=== PATIENT | male | born 1960 | race African-American/Black ===

== ENCOUNTER 2017-06-29 08:05 | Day surgery (SDC) | payer OTHER ==
[2017-06-29] VITALS (10 sets, daily range): BP systolic 123–141; BP diastolic 74–93
[~2017-06-29] VITALS: Ht 180.3 cm; Wt 93.9 kg
--- NOTE | 2017-06-29 06:57 | Pre-Procedure Note/Attestation ---
Pre-Procedure Note/Attestation Complete Prior to Procedure Planned Procedure: right Procedure Narrative: rt shoulder scope, sad, mini estiven, biceps tenodesis, resection of loose fragments from subscap recess, possible rtc repair vs debride Indications for Procedure Pre-Operative Diagnosis: rt shoulder rtc tear Attestation I attest that I discussed the nature of the procedure; its benefits; risks and complications; and alternatives (and the risks and benefits of such alternatives ), prior to the procedure, with the patient (or the patient's legal petroleum products sales representative). I attest that, if there was a reasonable possibility of needing a blood transfusion, the patient (or the patient's legal petroleum products sales representative) was given the [place] [employer] standardized written summary, pursuant to the Myke Sylvarena Blood Safety Act ([place] Health and Safety Code # 1645, as amended). I attest that I re-evaluated the patient just prior to the surgery and that there has been no change in the patient's H&P, except as documented below: NONE MAN MCKEON Jun 29, 2017 06:57
[~2017-06-29 08:05] MED LIST: NORCO 10-325 T1 EACH ORAL; ceFAZolin sod 1 GM in NS 55 ML IVP ONE; celeBREX 200mg Cap **SURGERY PATIENTS ONLY ORAL ONE; oxyCONTIN 20mg tab ORAL ONE
[2017-06-29] MEDS ORDERED: SOMA350 MG PO (08:51)
[2017-06-29] MEDS ORDERED: Ropivacaine 5mg/ml Vial 30ml INJ ONE (09:36)
[2017-06-29] MEDS ORDERED: LR 1000ml ONE (10:00)
[2017-06-29] MEDS ORDERED: Midazolam 2mg/2ml Inj ONE (10:00)
[2017-06-29] MEDS ORDERED: Neostigmine 1mg/ml 10ml Inj ONE (10:00)
[2017-06-29] MEDS ORDERED: Zemuron 50mg/5ml Inj IV ONE (10:00)
[2017-06-29] MEDS ORDERED: fentaNYL 100 mcg/2 mL IV ONE (10:00)
[2017-06-29] MEDS ORDERED: Succinylcholine 20mg/ml 10ml vial ONE (10:00)
[2017-06-29] MEDS ORDERED: Glycopyrrolate 0.2mg/ml 1ml Vial ONE (10:00)
[2017-06-29] MEDS ORDERED: Propofol 200mg/20ml IV ONE (10:00)
[2017-06-29] MEDS ORDERED: LR 1000ml 1,000 ML IVLG SCH (11:09)
--- NOTE | 2017-06-29 11:09 | Anethesia Preoperative Eval ---
Anesthesia Pre-op PMH/ROS General Date of Evaluation: Jun 29, 2017 Time of Evaluation: 09:50 Anesthesiologist: Ina ASA Score: ASA 2 Mallampati Score Class I : Soft palate, uvula, fauces, pillars visible Class II: Soft palate, uvula, fauces visible Class III: Soft palate, base of uvula visible Class IV: Only hard plate visible Mallampati Classification: Class II Surgeon: Alondra Diagnosis: R shoulder pain Surgical Procedure: R shoulder scope Anesthesia History: none Social History: current smoker Family History: no anesthesia problems Allergies: Coded Allergies: No Known Allergies (Unverified , 06/25/17) Medications: see eMAR Past Medical History Cardiovascular: Denies: HTN, CAD, DC, valve dz, arrhythmia, other Pulmonary: Denies: asthma, COPD, INA, other Gastrointestinal/Genitourinary: Reports: GERD, Denies: CRI, ESRD, other Neurologic/Psychiatric: Denies: dementia, CVA, depression/anxiety, TIA, other Endocrine: Denies: DM, hypothyroidism, steroids, other HEENT: Denies: cataract (L), cataract (R), glaucoma, NENANA (L), NENANA (R), other Hematology/Immune: Denies: anemia, DVT, bleeding disorder, other Musculoskeletal/Integumentary: Denies: OA, RA, DJD, DDD, edema, other PMH Narrative: as above PSxH Narrative: Facial bone Fx Anesthesia Pre-op Phys. Exam Physician Exam Last Vital Signs Date Time Temp Pulse Resp B/P (MAP) Pulse Ox O2 Delivery O2 Flow Rate FiO2 06/29/17 08:40 97.9 76 20 138/83 98 Room Air 97.9 Constitutional: NAD Neurologic: CN 2-12 intact Cardiovascular: RRR, no M/R/G Respiratory: CTA Gastrointestinal: S/NT/ND Airway Exam Mallampati Score: Class II MO: full Neck: flexible ROM: full Teeth: missing Dentures: no upper, no lower Anesthesia Pre-op A/P Labs see chart Studies Pre-op Studies: EKG - NSR Risk Assessment & Plan Assessment: ASA 2 Plan: GA with ETT R brachial plexus block for p/op pain control Status Change Before Surgery: No Pre-Antibiotics Drug: Ancef 2 gr Given Within 1 Hr of Incision: Yes Time Given: 10:54 MARYANN AMADO M.D. Jun 29, 2017 11:09
[2017-06-29] MEDS ORDERED: Meperidine 50mg/ml Inj(FOR RIGORS ONLY) IV PRN (11:15)
[2017-06-29] MEDS ORDERED: Ketorolac 30mg Inj IV PRN (11:15)
[2017-06-29] MEDS ORDERED: Hydromorphone 0.5mg/0.5ml inj IVP PRN (11:15)
[2017-06-29] MEDS ORDERED: DiphenhydrAMINE 50mg/ml Inj IVP PRN (11:15)
--- NOTE | 2017-06-29 13:06 | Brief Operative Note ---
Immediate Post Operative Note Operative Note Chief Complaint: rt shoulder pain Pre-op Diagnosis: rt shoulder rtc tear Procedure: rt shoulder scope, sad, mini estiven, biceps tenodesis, partial rtc repair Post-op Diagnosis: same as pre-op Findings: consistent w/pre-op dx studies Surgeon: md artur Tool Filer: swati jacques Anesthesiologist: md karlie Anesthesia: general, regional Specimen: yes Complications: none Condition: stable Fluids: ns Estimated Blood Loss: minimal Drains: none Implant(s) used?: Yes - biomet/arthrex BRAXTON JACQUES Jun 29, 2017 13:06
--- NOTE | 2017-06-29 13:24 | Immediate Post-Op Evaluation ---
Immediate Post-Op Evalulation Immediate Post-Op Evalulation Procedure: R shoulder arthroscopy subacromion decompression, RC repair Date of Evaluation: Jun 29, 2017 Time of Evaluation: 13:23 IV Fluids: 1200 Blood Products: none Estimated Blood Loss: 50 Urinary Output: none Blood Pressure Systolic: 123 Blood Pressure Diastolic: 74 Pulse Rate: 86 Respiratory Rate: 20 O2 Sat by Pulse Oximetry: 99 Temperature (Fahrenheit): 98.2 Pain Score (1-10): 1 Nausea: No Vomiting: No Complications none Patient Status: reacts, patent, extubated, none Hydration Status: adequate MARYANN AMADO M.D. Jun 29, 2017 13:24
--- NOTE | 2017-06-29 14:26 | 48 Hour Post Anesthesia Eval ---
Post Anesthesia Evaluation Procedure: R shoulder arthroscopy subacromion decompression, RC repair Date of Evaluation: Jun 29, 2017 Time of Evaluation: 14:25 Blood Pressure Systolic: 136 0: 72 Pulse Rate: 68 Respiratory Rate: 20 Temperature (Fahrenheit): 97.8 O2 Sat by Pulse Oximetry: 99 Airway: patent Nausea: No Vomiting: No Pain Intensity: 1 Hydration Status: adequate Cardiopulmonary Status: stable Mental Status/LOC: patient returned to baseline Follow-up Care/Observations: n/a Post-Anesthesia Complications: none Follow-up care needed: ready to discharge MARYANN AMADO M.D. Jun 29, 2017 14:26
[2017-06-29] MEDS ORDERED: Norco 5mg/325mg tab ORAL PRN (18:01)
[2017-06-29] MEDS ORDERED: Tylenol #3 tab (300mg/30mg) ORAL PRN (18:01)
[2017-06-29] MEDS ORDERED: D5 1/2NS 1,000 ML IV SCH (18:01)
--- NOTE | 2017-06-29 22:30 | Operative Note - Dictated ---
DATE OF OPERATION: 06/29/2017 PREOPERATIVE DIAGNOSES: 1. Right shoulder large retracted rotator cuff tear. 2. Right shoulder loose fragment. 3. Right shoulder arthritis. 4. Right shoulder biceps tendon tear. POSTOPERATIVE DIAGNOSES: 1. Right shoulder humeral head articular cartilage damage superiorly in the superior one-third of the humeral head. 2. Right shoulder large retracted rotator cuff tear with retraction all the way back to glenoid. 3. Right shoulder intra-articular biceps tendon tear involving larger than 50% of the biceps tendon. 4. Right shoulder loose fragment intra-articularly that was engulfed within the rotator cuff scar tissue. PROCEDURE: 1. Right shoulder arthroscopy and extensive intra-articular shaving. 2. Right shoulder subacromial bursoscopy, bursectomy, and subacromial decompression. 3. Right shoulder arthroscopic biceps tenotomy and biceps tenodesis in intertubercular groove using Arthrex 6.25 mm interference screw to a 7-mm socket. 4. Right shoulder resection of loose fragment from the subacromial space measuring 1 x 1 cm. 5. Right shoulder partial arthroscopic rotator cuff repair repairing the posterior as well as anterior limb with two [id number] stitches. SURGEON: Naveed Cantu M.D. ROOM MAID: Kelly Farley PA-C. Job Placement Specialist was present during the actual operative portion of the case and was important and essential part of the operation. During the operation, the video library assistant held and operated the arthroscopic camera for visualization, assisted by manipulating the arm to help with visualization, and helped with essential parts of the repair process as necessary such as operating surgical instruments under surgeon supervision, suture management, and wound closures. ANESTHESIOLOGIST: Dr. Buckley. ANESTHESIA: LMA anesthesia. ESTIMATED BLOOD LOSS: Less than 20 mL. COMPLICATIONS: None. SURGICAL INDICATION: The patient is a 57-year-old male, who sustained the above injury to his shoulder. The patient was treated non-operative initially, but this did not alleviate the patients symptoms. Therefore, after discussing all non-surgical and surgical options, and discussing all foreseeable risk and benefits of surgery, the patient opted for surgical treatment as described above. PATIENT POSITIONING: The patient was brought to the operating room table and was placed on the operating room table. All pressure points were well padded. General anesthesia was induced and the patient was then placed in the lateral decubitus position. All pressure points were well padded again and an axillary roll was placed. The patient shoulder was then prepped and draped in the usual sterile fashion. Time-out was performed and the appropriate preoperative antibiotic was given by the anesthesiologist. EXAMINATION OF SHOULDER UNDER ANESTHESIA: The shoulder was examined under anesthesia with all muscles well relaxed. The shoulder was forward flexed, abducted, and was placed through full range of external and internal rotation. The anterior, posterior, and inferior stability of the shoulder was checked. The exam revealed no evidence of adhesive capsulitis and no evidence of instability. PORTAL PLACEMENT: The posterior portal was established 2 cm inferior and 1 cm medial to the edge of the posterior acromion. A 1-cm skin incision was made using an #11 blade and using the blunt obturator, the cannula was gently placed through the capsule. The mid-glenoid portal was established just lateral to the coracoid process under direct visualization. Direction of the cannula was first established using a spinal needle, and subsequently, the cannula was placed through the capsule with a blunt obturator. The anterosuperior cannula was established under direct visualization off the anterolateral edge of the acromion and just anterior to the biceps tendon through the rotator interval. The directional of cannula was first established using a spinal needle, and subsequently, the cannula was placed through the capsule with a blunt obturator. DIAGNOSTIC ARTHROSCOPY: The biceps tendon was probed and pulled through the joint for visualization. There was extensive tearing of the biceps tendon involving more than 50% of biceps proper. The biceps anchor was palpated with a probe and was visualized. It appeared well attached and there was no evidence of SLAP tear. The posterior labrum and axillary recess was visualized. This was normal and there was no evidence of loose cartilage or fragments in this area. There was some condylar damage over the glenoid anteriorly and superiorly. The articular surface of the rotator cuff was visualized and probed next. There was full-thickness rotator cuff tear that was retracted back to the glenoid rim. The humeral head articular surface was then visualized. There was condylar damage over the superior one-third of the glenoid anteriorly and posteriorly. This was consistent with grade 3 and grade 4 chondromalacia. Next the anterior labrum, middle glenohumeral ligament, subscapularis tendon, and the anteroinferior glenohumeral ligament were evaluated. These structures were completely normal. At this point, the scope was moved to the mid-glenoid portal and the posterior structures including the posterior labrum, posterior capsule, and posterior cuff were visualized. These structures were completely normal. The subscapularis recess was devoid of any loose bodies and the anterior capsule was well attached to the humeral neck. The middle and anterior inferior glenohumeral ligament was visualized. These structures were completely normal. OPERATIVE DEBRIDEMENTS AND REPAIR: Care was given to all partial-thickness tears and frayed structures in the shoulder joint. The frayed rotator cuff and labrum was debrided using a shaver initially through the anterior portal and subsequently through the posterior portal to complete the debridement. This allowed for smooth debridement of all affected structures and all loose fragments were removed. At this point, the biceps tendon was debrided and a locking suture was placed to the biceps tendon and tenotomy of the biceps tendon was performed. The suture was then later used to do biceps tenodesis. DIAGNOSTIC BURSOSCOPY AND SUBACROMIAL DECOMPRESSION: The subacromial bursa was entered from the posterior portal. The anterior portal was established under the CA ligament using a switching stick. Subacromial arthroscopy was initiated. There was extensive bursitis and thickened and inflamed bursa tissue present. The CA ligament appeared to be scuffed and frayed. The shaver was placed through the anterior cannula and debridement of the hypertrophic bursa tissue was accomplished. Once visualization was adequate, a lateral portal was established using a blunt trochar in the mid portion of the acromion bone in the anterior-posterior direction and approximately 2 cm lateral to the lateral edge of the acromion. Using combination of shaver and electrocautery, the CA ligament was released from the undersurface of the acromion and a complete bursectomy was accomplished. At this point, a subacromial decompression was performed using a corrine initially taking off 5-8 mm of the anterolateral edge of the acromion from the lateral portal and viewing from the posterior portal. Then the lateral border of the undersurface of the acromion was decompressed to the same depth as the anterolateral edge. A posterior trough was then created in the acromion in line with the posterior edge of the clavicle. At this point, the scope was placed in the lateral portal and the subacromial decompression was performed from the posterior portal decompressing the undersurface of the acromion to depth of 5-8 mm. The decompression was performed anterior to the previously marked trough all the way medially to the level of the AC joint. At all times, care was given not to take off too much bone in order to avoid risk of fracture of the acromion. An excellent subacromial decompression was performed in this fashion. At this point, the bursal side of the rotator cuff was examined. All the bursa over the rotator cuff was removed and the rotator cuff was examined with a probe. The arm was placed into external rotation, neutral, and then internal rotation and there was full-thickness rotator cuff tear measuring 3 to 3.5 cm with retraction all the way back to glenoid rim. The scope was then placed in the posterior portal and the subacromial decompression was rechecked to assure there was no area of bone spur that would be still impinging onto the rotator cuff. EVALUATION OF DISTAL CLAVICLE AND DISTAL CLAVICLE RESECTION: Care was given to the distal end of the clavicle. Using electrocautery and patito, the distal end of the bursa and soft tissue around the distal end of the clavicle was debrided and cleaned. Care was given not to inflict excessive trauma to the ligaments of the AC joint. The distal end of the clavicle appeared to have an inferior osteophyte extending down well bellow the level of the acromion at the level of the AC joint. This appeared to be impinging onto the supraspinatus muscle belly and the musculotendinous junction of the rotator cuff. A mini-Allan procedure was performed by using a corrine to resect the inferior 30% of the distal end of the clavicle. This decompression allowed space for the inferior structures to slide without impingement. This co-planed the inferior edge of the distal clavicle with the inferior edge of the acromion. At this point, the care was given to the biceps tendon. The biceps tendon was then debrided and followed down to the intertubercular groove. A separate stab incision was made right over the biceps tendon and the biceps tendon was brought up at the arm and the locking sutures were placed in and excess degenerative biceps tendon was resected. At this point, a 7-mm socket was drilled into the intertubercular groove and using an Arthrex 6.25 mm Bio-Tenodesis screw, the biceps tendon was dunked into the 7 mm socket in the anterior humerus. The biceps tenodesis was performed in this fashion. The excess sutures were removed and cut. At this point, care was given to the rotator cuff. The cuff was not very mobile. The posterior aspect of the cuff was mobile. Therefore, a single anchor was placed posteriorly and the cuff was mobilized and two sutures were passed through the posterior cuff and were tied down posteriorly. Anteriorly, rotator interval slide was performed and cortical humeral ligaments were released. This provided some anterior mobility. A single anchor was placed anteriorly. The cuff was then repaired without anchor. At this point, two [id number] sutures were brought in to reapproximate the cuff. This provided a partial cuff repair (approximately 85% of cuff was repaired) although again there was some tension on the cuff repair and it was unclear where this would hold, however, the arm was placed through range of motion. There was stability of the rotator cuff at this point. CONDITION AT DISCHARGE FROM OPERATING ROOM: The skin was re-approximated and sterile dressing and sling were applied. All lap counts and instrument counts were correct. The patient tolerated the procedure well without complications and was taken to the recovery room in stable conditions. Naveed Cantu M.D. DR: Ronak JOB#: [id number] CC:
== END 2017-06-29 15:20 | disposition home or self-care (01) ==
LOC: SUR 08:05
DX: M75.111 Incomplete rotator cuff tear or rupture of right shoulder, not specified as traumatic (principal); M24.011 Loose body in right shoulder; S46.211A Strain of muscle, fascia and tendon of other parts of biceps, right arm, initial encounter; F17.210 Nicotine dependence, cigarettes, uncomplicated; K21.9 Gastro-esophageal reflux disease without esophagitis; X58.XXXA Exposure to other specified factors, initial encounter; Y93.9 Activity, unspecified; Y92.9 Unspecified place or not applicable
CPT/HCPCS: 29819; 29823; 29826; 29827; 29828; C1713; J0330; J0690; J2250; J2704; J2710; J2795; J3010; J7120; 94003; 94150